=== PATIENT | female | born 1995 | race Asian ===

== ENCOUNTER 2022-07-30 17:28 | Emergency (ER) | payer OTHER ==
[~2022-07-30] VITALS: Ht 162.6 cm; Wt 66.4 kg
[2022-07-30] MEDS ORDERED: IPRATROPIUM BROM 0.5 MG/2.5ML INH SOL NEB ONE (18:15)
[2022-07-30] MEDS ORDERED: ALBUTEROL SULF 2.5 MG/0.5ML(0.5%) NEB SOLN NEB ONE (18:15)
[2022-07-30] MEDS ORDERED: methylPREDNISolone SOD SUCC 125 MG/2 ML VL IM ONE (18:15)
[2022-07-30] MEDS ORDERED: ALBU108A5 IN (20:11)
[2022-07-30] MEDS ORDERED: PRED20TA2 PO (20:11)
[2022-07-30 20:32] VITALS: BP 105/53
== END 2022-07-30 20:35 | disposition home or self-care (01) ==
LOC: ER 17:28
DX: J45.909 Unspecified asthma, uncomplicated (principal)
CPT/HCPCS: 71046; 94640; 96372; 99283; J2930; J7644